=== PATIENT | female | born 1985 | race Caucasian/White ===

== ENCOUNTER 2023-05-16 10:51 | Outpatient (CLI) | payer OTHER, MEDICAID, SELFPAY ==
[2023-05-16 11:08] VITALS: BP 137/77; PULSE 101
[2023-05-16 11:19] VITALS: BMI 59.2
[2023-05-16 11:28] VITALS: BP 119/77; PULSE 91
[2023-05-16 11:49] VITALS: BP 108/65; PULSE 90
[2023-05-16 12:05] VITALS: TEMP 36.4
== END 2023-05-16 12:10 | disposition home or self-care (01) ==
LOC: OPOB 10:55 → OBGYN 10:56
PROVIDERS: PCP Physician Assistant; Visit Provider Family Medicine
DX: O26.899 Other specified pregnancy related conditions, unspecified trimester (principal); Z3A.00 Weeks of gestation of pregnancy not specified; R10.9 Unspecified abdominal pain
CPT/HCPCS: 59025; 99211

== ENCOUNTER 2023-05-16 17:25 | Inpatient (IN) | payer OTHER, MEDICAID, SELFPAY ==
[2023-05-16] VITALS (13 sets, daily range): BP systolic 111–164; BP diastolic 55–95; PULSE 71–115; RESP 18; TEMP 36.5–36.8; O2SAT 96–97; BMI 43.7
[2023-05-16 17:40] LABS: Basophils % 0.2 %; Eosinophils % 0.4 %; Hematocrit 42.5 % (36-47); Lymphocytes % 17.7 %; Mean Corpuscular HGB Conc 32.9 g/dL (30-55); Mean Corpuscular Hemoglobin 30.4 pg (27-33); Mean Corpuscular Volume 92.4 fl (85-98); Mean Platelet Volume 10.4 fL (7.4-10.4); Monocytes # 0.8 10^3/uL (0.2-0.9); Monocytes % 7.2 %; Neutrophils # 8.35 10^3/uL (1.8-7.7); Neutrophils % 74.1 %; Nucleated Red Blood Cells % 0 %; Platelet Count 286 10^3/cmm (157-399); Red Cell Distribution Width 13.9 % (12.1-15.1); White Blood Count 11.25 10^3/uL (3.29-11.43)
[2023-05-16] MEDS: oxytocin 30 UNIT/500 ML BAG 600 UNIT IV (17:42)
--- NOTE | 2023-05-16 18:35 | PM.OPHPUD ---
Labor & Delivery H&P Update Date of Procedure: May 16, 2023 Date H&P Performed: 05/14/23 Admission Diagnosis: 37-year-old 2 para 1-0-0-1At 38 weeks estimated gestational age presenting in active labor. Planned procedure: Vaginal delivery Other information: The patient has had an under relatively unremarkable . Her lab work has been unremarkable. Her blood type is a positive. Her antibody screen is negative. Her infectious disease profile is within normal limits. She failed her initial glucose screen, but passed 3-hour glucose screen. She is rubella nonimmune. GBS negative. She received a Tdap. The patient presented to the hospital earlier today with contractions. She did not make any cervical change, and her contractions were relatively sparse. As a result she was sent home. When she returned she was 7 to 8 cm with a bulging bag of water. The nurses could not determine if the patient was head down or not. As result we initially assumed that there was a transverse and/or breech presentation. After arrival to check the patient found that she was cephalic. She was then set up to prepare for vaginal delivery. Related Problem List Diagnoses (1) 38 weeks gestation of : A&P Assessment and plan (1) 38 weeks gestation of : I anticipate routine vaginal delivery. Status: Acute
--- NOTE | 2023-05-16 18:41 | PM.DELIVERY ---
Delivery Note: Date of delivery: May 16, 2023 Pre-delivery diagnoses: 1. 37-year-old 2 para 1-0-0-1 at 38 weeks estimated stational age presenting in active labor Post-delivery diagnoses: Status post spontaneous vaginal delivery Procedure: Spontaneous vaginal delivery Delivering Physician: Tariq Shea Estimated blood loss (mL): 120 Pre-Delivery Course: The patient presented to the hospital in active labor. She was thought to be breech or transverse position. When I arrived I found that she was cephalic. She was then set up to start pushing as she was found to be complete as well. Delivery: DELIVERY: The patient progressed to complete without difficulty. She delivered a female with a weight of 6 lb 12 oz with Apgars of 4,7. The baby was delivered from the germaine position and placed on the mother's abdomen. The cord was then clamped and cut. There was a nuchal cord x 2 that was reduced at the perineum. There was no meconium. The placenta and 3 vessel cord were delivered intact shortly thereafter. The perineum and vaginal vault were carefully examined. Female a second-degree posterior midline tear was noted. Lidocaine 2% was used to anesthetize the area. 3-0 Vicryl on an SH needle was then used to repair the tear with 2 individual subcutaneous tissues stitches. Both the mother and the baby were in stable condition. History History History 1 Term 1 0 Miscarriages/Ectopic 0 Living Children 1 A&P Assessment and plan (1) Spontaneous vaginal delivery: I anticipate routine care. Coding Level of Care Code Acute Code for Chg Fwd Diagnoses Spontaneous vaginal delivery O80
[2023-05-16] MEDS: lanolin oint 7 gm 1 APPLIC TOPICAL (20:01)
[2023-05-16] MEDS: ibuprofen 800 mg tablet PO (20:02)
[2023-05-16] MEDS: benzocaine-menthol 78 gm Canister 1 SPRAY TOPICAL (20:02)
[2023-05-17] MEDS: HYDROcodone-acetaminophen 5-325 mg Tablet PO (01:22)
[2023-05-17 05:00] VITALS: BP 110/75; PULSE 92; RESP 16; TEMP 36.8; O2SAT 97
[2023-05-17 05:58] LABS: Hematocrit 36.6 % (36-47); Mean Corpuscular HGB Conc 32.8 g/dL (30-55); Mean Corpuscular Hemoglobin 31.2 pg (27-33); Mean Corpuscular Volume 95.1 fl (85-98); Mean Platelet Volume 10.2 fL (7.4-10.4); Platelet Count 219 10^3/cmm (157-399); Red Blood Count 3.85 10^6/uL (3.85-5.65); Red Cell Distribution Width 14.2 % (12.1-15.1); White Blood Count 9.03 10^3/uL (3.29-11.43)
[2023-05-17] MEDS: docusate sodium 100 mg Capsule PO ×2 (09:33→17:38)
[2023-05-17] MEDS: prenatal vitamin Capsule 1 CAP PO (09:33)
[2023-05-17] MEDS: ibuprofen 800 mg tablet PO ×2 (09:33→17:38)
[2023-05-17 16:45] VITALS: BP 148/73; PULSE 74; RESP 20; TEMP 36.6; O2SAT 97
--- NOTE | 2023-05-17 17:28 | P.DS_ITS ---
Discharge Providers DRIVER TRAINEE Date of Admission: 05/16/23 17:25 Date of Discharge: 05/17/23 Attending Provider at Admission: Tariq Shea MD Attending Provider at Discharge: Tariq Shea MD Primary Care Provider: Vicky Deshpande Diagnoses at Discharge Discharge Diagnosis (1) Spontaneous vaginal delivery: Status: Acute Reason for Visit Reason for Visit: contractions Hospital Course Hospital Course The patient presented to the hospital in active labor. She quickly progressed to complete and had an unremarkable delivery of a healthy female infant. She did require some mild resuscitation but quickly improved with appropriate interventions. The patient had a second-degree posterior midline tear which was repaired with 3-0 Vicryl. Her course was unremarkable. She is breast-feeding well. Her bleeding has been unremarkable. Her pain has been well controlled. Information Peripartum Data: Delivery Method: Vaginal Physical Exam Narrative: The patient is alert and oriented. Her lungs are clear to auscultation Her heart has a regular rate and rhythm Her abdomen is nondistended nontender. Her fundus is firm and below the umbilicus. She has 1+ edema nursed extremities bilaterally. History History History 1 Term 1 0 Miscarriages/Ectopic 0 Living Children 1 Discharge Data Studies Completed and Pending Laboratory Results WBC 9.03 10^3/uL (3.29-11.43) 05/17/23 05:40 RBC 3.85 10^6/uL (3.85-5.65) 05/17/23 05:40 Hgb 12.00 g/dL (11.27-16.99) 05/17/23 05:40 Hct 36.6 % (36-47) 05/17/23 05:40 MCV 95.1 fl (85-98) 05/17/23 05:40 MCH 31.2 pg (27-33) 05/17/23 05:40 MCHC 32.8 g/dL (30-55) 05/17/23 05:40 RDW 14.2 % (12.1-15.1) 05/17/23 05:40 Plt Count 219 10^3/cmm (157-399) 05/17/23 05:40 MPV 10.2 fL (7.4-10.4) 05/17/23 05:40 Neut % (Auto) 74.1 % 05/16/23 17:15 Lymph % (Auto) 17.7 % 05/16/23 17:15 [place] % (Auto) 7.2 % 05/16/23 17:15 Eos % (Auto) 0.4 % 05/16/23 17:15 Baso % (Auto) 0.2 % 05/16/23 17:15 Neut # (Auto) 8.35 10^3/uL (1.8-7.7) H 05/16/23 17:15 Lymph # (Auto) 2.0 10^3/uL (0.8-4.8) 05/16/23 17:15 [place] # (Auto) 0.8 10^3/uL (0.2-0.9) 05/16/23 17:15 Eos # (Auto) 0.0 10^3/uL (0.0-0.8) 05/16/23 17:15 Baso # (Auto) 0.0 10^3/uL (0.0-0.1) 05/16/23 17:15 Nucleated RBC % (auto) 0 % 05/16/23 17:15 Nucleated RBCs # 0.0 /100WBC 05/16/23 17:15 Blood Type A Positive 05/16/23 17:15 Rho(D) Type Positive 05/16/23 17:15 Antibody Screen Negative 05/16/23 17:15 Vitals Last Vital Signs Temp 98.3 F 05/17/23 05:00 Pulse 92 05/17/23 05:00 Resp 16 05/17/23 05:00 BP 110/75 05/17/23 05:00 Pulse Ox 97 05/17/23 05:00 O2 Del Method Room Air 05/17/23 05:00 Results Labs OB ([facility]): Obstetrics US 01/31/23 Blood Type A Positive 05/16/23 Antibody Screen Negative 05/16/23 Hct 36.6 % (36-47) 05/17/23 Hgb 12.00 g/dL (11.27-16.99) 05/17/23 Rho(D) Type Positive 05/16/23 Plt Count 219 10^3/cmm (157-399) 05/17/23 Discharge Plan Discharge Patient Disposition: Home Condition: Stable Prescriptions: New ibuprofen 800 mg Tablet 800 mg PO TID Qty: 45 0RF -U 106.5-1 mg Capsule 1 cap PO DAILY Qty: 90 2RF Continued omega 3,6,9 combination no.7 92 mg (43 mg-22 [id number]) tablet,chewable PO Discharge Orders: Discharge Order (Routine); Ordered 05/17/23 Ordered By: Tariq Shea Referrals: Tariq Shea MD [Physician] - 6 Weeks Discharge Diet: Usual diet Discharge Activity: Limit activity as instructed Patient Instructions: Opioid Safety Discharge Attestations DRIVER TRAINEE Time Spent in Discharge Care*: less than 30 min Coding Level of Care Code Acute Code for Chg Fwd Diagnoses Spontaneous vaginal delivery O80
[2023-05-17 20:57] VITALS: BP 128/75; PULSE 82; RESP 15; TEMP 36.8; O2SAT 98
[2023-05-17] MEDS: measles,mumps,rubella pf Vial (w/diluent) 0.5 ML SUBCUT (21:17)
== END 2023-05-17 21:59 | disposition home or self-care (01) | DRG 807 ==
LOC: OPOB 05-17 05:34 → OBGYN 05-17 05:34
PROVIDERS: Admitting Provider Family Medicine; PCP Physician Assistant; Visit Provider Family Medicine
DX: O69.81X0 Labor and delivery complicated by cord around neck, without compression, not applicable or unspecified (principal); Z37.0 Single live birth; O70.1 Second degree perineal laceration during delivery; Z3A.38 38 weeks gestation of pregnancy
CPT/HCPCS: 36415; 59409; 85025; 85027; 86850; 86900; 90707; 96372; J2590

== ENCOUNTER 2024-06-29 17:25 | Emergency (ER) | payer OTHER, MEDICAID, SELFPAY ==
[2024-06-29 17:41] VITALS: BP 132/79; PULSE 99; RESP 17; TEMP 36.9; O2SAT 98; BMI 46.0
--- NOTE | 2024-06-29 18:06 | USR_ITS ---
PROCEDURE INFORMATION: Exam: US , Transvaginal Exam date and time: 06/29/2024 6:32 PM Age: 38 years old Clinical indication: Lmp or gestational age (in weeks): 11w 3d per lmp; Antepartum complications; Bleeding; Additional info: Vaginal bleeding, passing clots, 12 weeks preg LABS AND CLINICAL REPORTS: Last menstrual period start date: 05/10/2024 Gestational age (Established): 11 w 3 d Estimated due date (Established): 01/15/2025 TECHNIQUE: Imaging protocol: Real-time transvaginal obstetrical ultrasound of the maternal pelvis with image documentation. Transvaginal imaging was used for better evaluation of the fetus, adnexa, and/or cervix. COMPARISON: [place] [id number] 01/31/2023 2:27 PM FINDINGS: MATERNAL: Uterus: Uterus measures 12.09 cm x 5.39 cm x 5.51 cm. Endometrial stripe is prominent at 2.2 mm may be related to status, retained products of conception is felt less likely, close clinical correlation, serial beta hCG levels and follow-up ultrasound as clinically indicated device Right ovary/adnexa: Right ovary measures 2.7 cm x 2.7 cm x 1.9 cm. Right ovarian volume is 7.22 mL. Left ovary/adnexa: Left ovary measures 2.3 cm x 2 cm x 2.2 cm. Left ovarian volume is 5.2 mL. US/US OB transvaginal [id number] IMPRESSION: Endometrial stripe is prominent at 2.2 mm may be related to status, retained products of conception is felt less likely, close clinical correlation, serial beta hCG levels and follow-up ultrasound as clinically indicated device
--- NOTE | 2024-06-29 18:12 | ED_ITS ---
HPI - 2 General: Chief complaint: Vaginal Bleeding Stated complaint: 12 wks pregant, passed blood clot, loosing blood Time Seen by Provider: 06/29/24 17:51 Source: patient Mode of arrival: ambulatory Limitations: no limitations History of Present Illness: Patient is a 38-year-old female, a0, who presents to the emergency department with acute onset vaginal bleeding with clots tonight. Patient states she is 12 weeks as confirmed by urine test, is set to soon undergo ultrasonography. Patient reports that she was making dinner tonight, felt a sharp pain to her left lower quadrant/pelvic region and had sudden onset vaginal bleeding, and states she passed a coin sized clots. She states the pain has some subsided, but every time she stands up she can feel blood rushing down her pants. She presented to the emergency department with blood covering her pants. With onset of bleeding, she denies any chest pain, palpitations, lightheadedness or dizziness, syncope or presyncope, or other concerning symptoms. At this time she is asymptomatic, stating her pain is subsided and if she is seated she is not bleeding and does not have the sensation of bleeding. She has no history of ectopic or tubo-ovarian abscess, no history of torsion. Abdominal surgical history of cholecystectomy. This is her third , no complications reported with the prior 2. MD Complaint: abdominal pain and vaginal bleeding Onset (ago): hour(s) Location: pelvis Severity: mild Quality: Cramping Radiation: abdomen Vaginal discharge: none Vaginal bleeding: clots Date of Last Menstrual Period: 04/10/24 Patient : Yes Number of Weeks : 12 OB History - Current : no complications OB History - Previous Pregnancies: no complications care: none (Soon to follow-up with OB) Associated symptoms: Reports abdominal pain; Deny dysuria, headache(s), nausea or vomiting Related Data Previous Rx's Medication Instructions Recorded multivitamin no.51-ferrous 1 cap PO DAILY #90 caps 05/17/23 fumarate 106.5 mg-folic acid 1 mg capsule (-U) Allergies Allergy/AdvReac Type Severity Reaction Status Date / Time No Known Allergies Allergy Verified 07/30/23 13:03 Review of Systems 2 General: Reports: 10 or more systems reviewed and unremarkable except in HPI and below Const: Denies: fever(s), chills, change in appetite, change in weight or diaphoresis ENMT: Denies: throat pain or hoarseness Card: Denies: chest pain, palpitations or lightheadedness Resp: Denies: dyspnea, productive cough or wheezing GI: Reports: abdominal pain; Denies: nausea, vomiting, diarrhea, constipation, bloating, change in stool character or hematochezia : Reports: vaginal bleeding, pelvic pain and other (); Denies: flank pain, difficulty voiding, dysuria, urinary frequency or urinary urgency Musc: Denies: neck pain or back pain Skin/Breast: Denies: rash or new lesions Neuro: Denies: headache(s) or dizziness PFSH ED 2 PFSH: Medical History No pertinent past medical history Denies diabetes, asthma, hypertension, seizures, DVT/PE PCP: MELINDA Vickers Surgical History S/P cholecystectomy 2011---laproscopic procedure History of surgery on arm After trauma. She had a tendon transplant done in 2004 Family History Mother Hypertension Brother Thyroid disease Denies family history of Colon cancer Ovarian cancer Diabetes Heart disease Hyperlipidemia Breast cancer Uterine cancer Stroke Female Reproductive History: Date of last menstrual period: 04/10/24 Physical Exam 2 Const: COMMON NORMALS: no acute distress, average body habitus, patient oriented x3, no limitations, healthy appearing, alert and well nourished G ENERAL APPEARANCE: cooperative and comfortable ORIENTATION/CONSCIOUSNESS: Yes awake OTHER: Patient nontoxic-appearing, there is presence of dried blood covering her pants HENMT: COMMON NORMALS: normocephalic, atraumatic, hearing grossly normal bilaterally, external ears normal, Normal external nose present, Normal nasal mucous membranes and turbinates present and moist oral mucous membranes HEAD & SCALP: normocephalic and atraumatic NOSE: Normal external nose present and Normal nasal mucous membranes and turbinates present EXTERNAL EAR: Yes external ears normal Eye: COMMON NORMALS: Equal, round and reactive pupils present, EOMs intact bilaterally, conjunctivae normal and normal visual ogden by confrontation C ONJUNCTIVA: Yes conjunctivae normal PUPIL: Yes Equal, round and reactive pupils present Neck/C-Spine: COMMON NORMALS: full ROM, supple, no meningeal signs and no JVD Resp: COMMON NORMALS: normal respiratory effort, No retractions, No use of accessory muscles and clear to auscultation bilaterally AUSCULTATION: clear to auscultation bilaterally, no crackles, no rales, no rhonchi and no wheezes Cardio: COMMON NORMALS: no JVD, regular rate, regular rhythm, S1 normal heart sound present, S2 normal heart sound present, No gallops present (Cardio), No clicks present (Cardio), No murmurs present (Cardio), No rub (Cardio) and Peripheral pulses 2+ throughout RATE: regular rate RHYTHM: regular rhythm HEART SOUNDS: S1 normal heart sound present and S2 normal heart sound present PERIPHERAL PULSES: Peripheral pulses 2+ throughout GI: COMMON NORMALS: Normal to inspection, nondistended, normoactive bowel sounds present, Soft to palpation, non-tender, No hepatosplenomegaly present and no masses AUSCULTATION: Yes normoactive bowel sounds PALPATION: Yes Soft to palpation, No Guarding due to palpation present (GI), No Rigid due to palpation and Yes No hepatosplenomegaly present RECTAL EXAM: deferred : COMMON NORMALS: Yes no CVA tenderness BLADDER/KIDNEY EXAM: Yes no CVA tenderness Back/Pelvis: COMMON NORMALS: no CVA tenderness Extremity: COMMON NORMALS: normal to inspection and full ROM Neuro: COMMON NORMALS: patient oriented x3, moves all extremities, no focal motor deficits and no sensory deficits noted SENSORIUM/ORIENTATION: Yes alert MENINGEAL SIGNS: Yes no meningeal signs Psych: COMMON NORMALS: mental status grossly normal, cooperative and speech normal SPEECH: Yes normal speech Skin: COMMON NORMALS: no rashes or lesions noted GENERAL SKIN EXAM: no rashes or lesions noted Procedures Perimortem Number of Weeks : 12 Course 2 Vital Signs: Vital signs: Vital Signs Temperature 98.5 F 06/29/24 17:41 Pulse Rate 91 06/29/24 19:52 Respiratory Rate 17 06/29/24 17:41 Blood Pressure 119/57 06/29/24 19:52 Pulse Oximetry 100 06/29/24 19:52 Oxygen Delivery Me thod Room Air 06/29/24 19:30 MDM - OB/Uterine Contractions Medical Decision Making Patient has an onset vaginal bleeding tonight, 12 weeks by urine . Here her labs are normal including normal hemoglobin hematocrit. Her serum beta-hCG quantitative did not correlate with her gestational age. Additionally her ultrasound showing signs of possibly status, recommended close correlation and serial hCG levels with follow-up ultrasound. Patient does mention that she has close follow-up with OB and is to call her OB in the morning to discuss ED visit. I think that this is appropriate given her presentation and that she would benefit from prompt follow-up. No need for further imaging or surgical consultation at this time, will have her return if her bleeding continues or if she continues to pass large clots. Initially was bleeding here but has not had any recent episodes. She agrees with discharge home and return precautions given. Discussed patient with Dr. Antonio. Lab Data 06/29/24 18:33 Radiology Impressions Transvaginal US 06/29/24 18:06 IMPRESSION: Endometrial stripe is prominent at 2.2 mm may be related to status, retained products of conception is felt less likely, close clinical correlation, serial beta hCG levels and follow-up ultrasound as clinically indicated device Laboratory Results WBC 7.49 10^3/uL (3.29-11.43) 06/29/24 18:33 RBC 4.53 10^6/uL (3.85-5.65) 06/29/24 18:33 Hgb 13.40 g/dL (11.27-16.99) 06/29/24 18:33 Hct 40.7 % (36-47) 06/29/24 18: MCV 89.8 fl (85-98) 06/29/24 18: MCH 29.6 pg (27-33) 06/29/24 18: MCHC 32.9 g/dL (30-55) 06/29/24 18:33 RDW 13.0 % (12.1-15.1) 06/29/24 18:33 Plt Count 248 10^3/cmm (157-399) 06/29/24 18:33 MPV 9.3 fL (7.4-10.4) 06/29/24 18:33 Neut % (Auto) 66.3 % 06/29/24 18: Lymph % (Auto) 25.0 % 06/29/24 18:33 [place] % (Auto) 6.0 % 06/29/24 18:33 Eos % (Auto) 2.3 % 06/29/24 18:33 Baso % (Auto) 0.3 % 06/29/24 18:33 Neut # (Auto) 4.97 10^3/uL (1.8-7.7) 06/29/24 18:33 Lymph # (Auto) 1.9 10^3/uL (0.8-4.8) 06/29/24 18:33 [place] # (Auto) 0.5 10^3/uL (0.2-0.9) 06/29/24 18:33 Eos # (Auto) 0.2 10^3/uL (0.0-0.8) 06/29/24 18: Baso # (Auto) 0.0 10^3/uL (0.0-0.1) 06/29/24 18:33 Nucleated RBC % (auto) 0 % 06/29/24 18: Nucleated RBCs # 0.0 /100WBC 06/29/24 18:33 Ser , Semi-Qnt 7951.00 mIU/mL 06/29/24 18:33 Blood Type A Positive 06/29/24 18:33 Rho(D) Type Rh positive 06/29/24 18:33 Antibody Screen Negative 06/29/24 18:33 All radiology interpretation(s) finalized by discharge Discharge Plan Discharge Patient Disposition: Home Clinical Impression: Vaginal bleeding in patient at less than 20 weeks gestation Condition: Stable Prescriptions: No Action -U 106.5-1 mg Capsule 1 cap PO DAILY Qty: 90 2RF Discharge Orders: Discharge ED (Routine); Ordered 06/29/24 Ordered By: Jesus Cheney Referrals: Vicky Deshpande PA [Primary Care Provider] - Activity Restrictions/Additional Instructions: Please call OB first thing in the morning to schedule follow-up appointment as soon as possible. Please note that if you continue to have bleeding, passing more clots, feeling like you are going to pass out, or other concerning signs or symptoms that you need to return to the emergency department for reevaluation. Coding Level of Care Code ED Certified Real Estate Appraiser for April Khanna
[2024-06-29 18:46] LABS: Basophils % 0.3 %; Eosinophils # 0.2 10^3/uL (0.0-0.8); Eosinophils % 2.3 %; Hematocrit 40.7 % (36-47); Lymphocytes # 1.9 10^3/uL (0.8-4.8); Mean Corpuscular HGB Conc 32.9 g/dL (30-55); Mean Corpuscular Hemoglobin 29.6 pg (27-33); Mean Corpuscular Volume 89.8 fl (85-98); Mean Platelet Volume 9.3 fL (7.4-10.4); Monocytes # 0.5 10^3/uL (0.2-0.9); Neutrophils # 4.97 10^3/uL (1.8-7.7); Neutrophils % 66.3 %; Nucleated Red Blood Cells % 0 %; Platelet Count 248 10^3/cmm (157-399); Red Blood Count 4.53 10^6/uL (3.85-5.65); White Blood Count 7.49 10^3/uL (3.29-11.43)
[2024-06-29 19:00] VITALS: BP 113/71; PULSE 98; O2SAT 98
[2024-06-29 19:30] VITALS: BP 119/51; PULSE 94; O2SAT 100
[2024-06-29 19:52] VITALS: BP 119/57; PULSE 91; O2SAT 100
== END 2024-06-29 19:54 | disposition home or self-care (01) ==
PROVIDERS: Emergency Provider Physician Assistant; PCP Physician Assistant
DX: O20.9 Hemorrhage in early pregnancy, unspecified (principal); Z3A.12 12 weeks gestation of pregnancy
CPT/HCPCS: 76817; 84702; 85025; 86850; 86900; 99284

== ENCOUNTER → 2024-11-10 06:54 | Outpatient (BNVA) | payer OTHER, MEDICAID, SELFPAY | PROVIDERS: PCP Physician Assistant; Visit Provider Podiatrist Foot & Ankle Surgery | DX: M79.672 Pain in left foot (principal); M21.622 Bunionette of left foot; M20.42 Other hammer toe(s) (acquired), left foot; M77.42 Metatarsalgia, left foot | CPT/HCPCS: 73630 ==